=== PATIENT | female | born 1970 | race Caucasian/White ===

== ENCOUNTER 2019-07-20 09:54 | Outpatient (CLI) | payer BC, SELFPAY ==
--- NOTE | 2019-07-20 10:28 | ECG_ITS ---
NAME OF STUDY: TREADMILL STRESS ECHOCARDIOGRAM INDICATION: Chest Pain, EXERCISE DATA: The patient was exercised by Chad protocol. Baseline heart rate was 63 beats per minute. Baseline blood pressure was 121/78 millimeters of mercury. Target heart rate was 173 beats per minute. Maximum heart rate achieved was 157, which was 90 % of the target heart rate. Maximum blood pressure was 166/81 millimeters of mercury. Total exercise time was 4 minutes 30 seconds. Maximum METs achieved was 7, maximum VO2 was 24.5. The reason for ending the test was maximum effort achieved. The patient complained of shortness of breath during the stress test, which then resolved at the end of the test. ELECTROCARDIOGRAM: BASELINE: Showed sinus rhythm, normal axis, no significant ST-T changes at the baseline noted. EXERCISE: At the peak exercise level, no significant ST-T changes suggestive of ischemia noted. RECOVERY: During the recovery period, heart rate dropped appropriately. No significant ST-T changes in the recovery suggestive of ischemia noted. CONCLUSION: 1. Exercise capacity poor. 2. Heart rate response was appropriate. 3. Blood pressure response was appropriate. 4. Symptoms not suggestive of ischemia. 5. Electrocardiogram portion of the stress test was not suggestive of ischemia. 6. Nuclear scan will be documented separately. Electronically Signed On 07-20-2019 19:09:00 CDT by Ami Cerna M.D. [email or web address]
[2019-07-20 10:30] VITALS: BMI 34.7
--- NOTE | 2019-07-20 11:04 | USCV_ITS ---
Saba Metzger Age: 48 Gender: F : 1970 Exam Date: 07/20/2019 10:56 Ordering Phys: Efrain Epstein MD Technologist: Eddi Wellington Exam Location: [facility] [place] Indication: SOB, Chest pain Rhythm: Sinus Patient History: Family history Cardiac Medications: NONE Medications in past 24 hours: NONE Contrast: Stress Results Protocol: Chad Total dose(mL): Exercise Duration (min:sec): 4:13 METS: 7.0 Resting HR: 63 Resting BP: 121 / 78 Peak HR: 157 Peak BP: 166 / 81 Max Predicted HR: 173 91 % Max Predicted HR Target HR: 147 Double Product: 59455 Stress Summary: The patient's target heart rate was achieved BP Response: Normal Reason for Termination: Test terminated after reaching target heart rate (85% max predicted) Cardiac Symptoms: Dyspnea ECG Analysis Resting ECG: Stress ECG: Arrhythmia: MEASUREMENTS (Male/Female) Normal Values FINDINGS Baseline: Normal left ventricle size and ejection fraction estimated ejection fraction 60% without wall motion abnormality Peak exercise: Good augmentation of left ventricular cavity, left ventricle function was hyperdynamic, no wall motion abnormality noted. Recovery: Uneventful. No wall motion abnormality noted CONCLUSIONS Echocardiographic portion of stress test was not suggestive of ischemia, EKG segment will be documented separately. Ami Cerna MD (Electronically Signed) Final Date: 20 Jul 2019 17:47 S
[2019-07-20 11:17] VITALS: BP 135/67; PULSE 100
== END 2019-07-20 09:55 | disposition home or self-care (01) ==
PROVIDERS: PCP Family Medicine; Visit Provider Family Medicine
DX: R06.09 Other forms of dyspnea (principal); R07.9 Chest pain, unspecified
CPT/HCPCS: 93017; 93350

== ENCOUNTER → 2019-10-12 13:56 | Outpatient (BNVA) | payer BC, SELFPAY | PROVIDERS: PCP Family Medicine; Visit Provider Internal Medicine Rheumatology | DX: R76.8 Other specified abnormal immunological findings in serum (principal); Z79.899 Other long term (current) drug therapy; Z11.59 Encounter for screening for other viral diseases; Z11.1 Encounter for screening for respiratory tuberculosis; M19.90 Unspecified osteoarthritis, unspecified site; M79.7 Fibromyalgia; M77.12 Lateral epicondylitis, left elbow; M77.11 Lateral epicondylitis, right elbow; M77.01 Medial epicondylitis, right elbow; M77.02 Medial epicondylitis, left elbow | CPT/HCPCS: 36415; 80076; 81001; 82306; 82565; 82570; 84156; 85025; 85651; 86140; 86480; 86704; 86803; 86812; 87340; 99204 ==

== ENCOUNTER 2019-10-13 08:19 | Outpatient (CLI) | payer BC, SELFPAY ==
--- NOTE | 2019-10-13 08:28 | XR_ITS ---
WS: [id number] PROCEDURE: XR chest 2V* [id number] CLINICAL INFORMATION: joint pain COMPARISON: July 09, 2017 FINDINGS: Heart: Normal cardiac silhouette. Lungs: Lungs are clear. No consolidation or pleural fluid. Bones: Postoperative changes lower cervical spine. Moderate thoracic kyphosis with chronic anterior w edging in the mid thoracic spine. XR/XR chest 2V* [id number] IMPRESSION: No acute chest findings.
--- NOTE | 2019-10-13 08:28 | XR_ITS ---
WS: [id number] FOOT LEFT TECHNIQUE: 3 views of the left foot CLINICAL INFORMATION: joint pain COMPARISON: None. FINDINGS: No evidence of acute fracture or dislocation. Normal tarsal metatarsal alignment. Normal calcaneus. N ormal visualized talar dome. No acute findings. XR/XR foot LT min 3V* [id number] IMPRESSION: Normal left foot.
--- NOTE | 2019-10-13 08:28 | XR_ITS ---
WS: [id number] HAND RIGHT TECHNIQUE: 3 views of the right hand CLINICAL INFORMATION: joint pain COMPARISON: None. FINDINGS: Normal metacarpals. Normal MCP joint. Metacarpal heads are normal in appearance. Normal PIP and DIP j oints. No evidence of acute fracture or dislocation. Radiocarpal joint: Normal. Carpal bones: Normal. XR/XR hand RT min 3V* [id number] IMPRESSION: Normal right hand.
--- NOTE | 2019-10-13 08:28 | XR_ITS ---
WS: [id number] FOOT RIGHT TECHNIQUE: 3 views of the right foot CLINICAL INFORMATION: joint pain COMPARISON: None. FINDINGS: No evidence of acute fracture or dislocation. Normal tarsal metatarsal alignment. Normal calcaneus. N ormal visualized talar dome. No acute findings. XR/XR foot RT min 3V* [id number] IMPRESSION: Normal right foot.
--- NOTE | 2019-10-13 08:28 | XR_ITS ---
WS: [id number] HAND LEFT TECHNIQUE: 3 views of the left hand CLINICAL INFORMATION: joint pain COMPARISON: None. FINDINGS: Normal metacarpals. Normal MCP joint. Metacarpal heads are normal in appearance. Normal PIP and DIP j oints. No evidence of acute fracture or dislocation. Radiocarpal joint: Normal. Carpal bones: Normal. XR/XR hand LT min 3V* [id number] IMPRESSION: Normal left hand.
== END 2019-10-13 08:20 | disposition home or self-care (01) ==
LOC: RADWPI 08:22
PROVIDERS: PCP Family Medicine; Visit Provider Internal Medicine Rheumatology
DX: M25.50 Pain in unspecified joint (principal)
CPT/HCPCS: 71046; 73130; 73630

== ENCOUNTER → 2019-11-17 09:34 | Outpatient (BNVA) | payer BC, SELFPAY | PROVIDERS: PCP Family Medicine; Visit Provider Internal Medicine Rheumatology | DX: R76.8 Other specified abnormal immunological findings in serum (principal); Z79.899 Other long term (current) drug therapy; M19.90 Unspecified osteoarthritis, unspecified site; M79.7 Fibromyalgia; M77.12 Lateral epicondylitis, left elbow; M77.11 Lateral epicondylitis, right elbow; M77.01 Medial epicondylitis, right elbow; M77.02 Medial epicondylitis, left elbow | CPT/HCPCS: 99214 ==

== ENCOUNTER → 2020-03-21 12:39 | Outpatient (BNVA) | payer BC, SELFPAY | PROVIDERS: PCP Family Medicine; Visit Provider Internal Medicine Rheumatology | DX: M19.90 Unspecified osteoarthritis, unspecified site (principal); R76.8 Other specified abnormal immunological findings in serum; Z79.899 Other long term (current) drug therapy; M79.7 Fibromyalgia; I73.00 Raynaud's syndrome without gangrene; M77.10 Lateral epicondylitis, unspecified elbow; M77.00 Medial epicondylitis, unspecified elbow | CPT/HCPCS: 36415; 80076; 82565; 85025; 85651; 86140; 99214 ==

== ENCOUNTER → 2020-12-14 17:02 | Outpatient (BNVA) | payer BC, SELFPAY | PROVIDERS: PCP Family Medicine; Visit Provider Internal Medicine Rheumatology | DX: M19.90 Unspecified osteoarthritis, unspecified site (principal); Z79.899 Other long term (current) drug therapy | CPT/HCPCS: 80076; 82565; 85025; 86140 ==

== ENCOUNTER → 2020-12-19 09:07 | Outpatient (BNVA) | payer BC, SELFPAY | PROVIDERS: PCP Family Medicine; Visit Provider Internal Medicine Rheumatology | DX: M19.90 Unspecified osteoarthritis, unspecified site (principal); R76.8 Other specified abnormal immunological findings in serum; Z79.899 Other long term (current) drug therapy; M79.7 Fibromyalgia; M77.01 Medial epicondylitis, right elbow; M77.11 Lateral epicondylitis, right elbow; M77.02 Medial epicondylitis, left elbow; M77.12 Lateral epicondylitis, left elbow | CPT/HCPCS: 99214 ==

== ENCOUNTER → 2021-01-23 08:14 | Outpatient (BNVA) | payer BC, SELFPAY | PROVIDERS: PCP Family Medicine; Visit Provider Internal Medicine Rheumatology | DX: M19.90 Unspecified osteoarthritis, unspecified site (principal); Z79.899 Other long term (current) drug therapy | CPT/HCPCS: 80076; 82565; 84439; 84443; 85025; 86140 ==

== ENCOUNTER 2022-10-12 12:50 | Outpatient (CLI) | payer BC, SELFPAY ==
--- NOTE | 2022-10-12 | MR_ITS ---
WS: [id number] MRI HEAD WITHOUT CONTRAST TECHNIQUE: Sagittal T1, T2 axial, T2 axial FLAIR, axial and coronal T1 images, axial susceptibility w eighted imaging, axial diffusion weighted images, and coronal T2 images were obtained. CLINICAL INFORMATION: TINGLING COMPARISON: None. FINDINGS: No evidence of restricted diffusion to suggest acute ischemia. Ventricular system and basal cisterns are patent. A few tiny foci of T2 hyperintensity in the supratentorial white matter nonspecific in a patient this age but can be seen with hypertension, diabetes, migraine headaches. Normal posterior fo ssa. Normal vascular flow voids at the skull base. No extra-axial fluid collections. No evidence of m ass or mass effect. Paranasal sinuses and mastoid air cells well aerated. Normal posterior nasopharyn x and parapharyngeal fat. No hemosiderin on susceptibly weighted images. Normal optic chiasm and pituitary infundibulum. Temporal lobes and hippocampal formations are normal in appearance. MR/MR head wo con* [id number] IMPRESSION: 1. No evidence of restricted diffusion to suggest acute ischemia. 2. 2 or 3 tiny foci of T2 hyperintensity in the supratentorial white matter no nspecific in a patient this age but can be seen with hypertension, diabetes, an d migraine headaches. 3. No hemosiderin on susceptibly weighted images. 4. No other suspicious findings.
== END 2022-10-12 12:51 | disposition home or self-care (01) ==
PROVIDERS: PCP Family Medicine; Visit Provider Family Medicine
DX: R41.3 Other amnesia (principal); R27.8 Other lack of coordination; R51.9 Headache, unspecified; R20.2 Paresthesia of skin
CPT/HCPCS: 70551

== ENCOUNTER → 2022-11-20 11:31 | Outpatient (BNVA) | payer BC, SELFPAY | PROVIDERS: PCP Family Medicine; Referring Provider Nurse Practitioner Family; Visit Provider Psychiatry & Neurology Neurology | DX: R41.3 Other amnesia (principal); Z82.49 Family history of ischemic heart disease and other diseases of the circulatory system | CPT/HCPCS: 36415; 80053; 82306; 82542; 82607; 82746; 83735; 83921; 84207; 84425; 84439; 84443; 84481; 84591; 85025; 86337; 86341; 86592; 86617; 86780 ==